=== PATIENT | female | born 1985 | race Caucasian/White ===

== ENCOUNTER 2018-08-14 13:35 | Emergency (ER) | payer OTHER, SELFPAY ==
[2018-08-14 13:51] VITALS: BP 116/76; PULSE 78; RESP 16; TEMP 36.6; O2SAT 98; BMI 35.5
--- NOTE | 2018-08-14 14:02 | PC.NURSE ---
Urine is clear yellow without obvious radha blood seen
[2018-08-14 14:17] LABS: Add Manual Diff / Slide Review NO; Basophils Absolute Auto 100 /uL (0-100); Basophils Percent Auto 1.2 % (0-2); Eosinophils Absolute Auto 100 /uL (0-450); Eosinophils Percent Auto 1.7 % (2-4); Hematocrit 38.9 % (36-46); Hemoglobin 13.4 g/dL (12.0-16.0); Lymphocytes Absolute Auto 2500 /uL (1100-4500); Lymphocytes Percent Auto 38.8 % (25-40); Mean Corpuscular HGB Conc 34.6 % (30-36); Mean Corpuscular Hemoglobin 30.6 PG (26-34); Mean Corpuscular Volume 88.4 fL (80-100); Monocytes Absolute Auto 500 /uL (0-900); Monocytes Percent Auto 7.4 % (3-14); Neutrophils Absolute Auto 3300 /uL (1500-7000); Neutrophils Percent Auto 50.9 % (50-75); Platelet Count 278 X10^3/uL (150-400); Red Blood Cell Count 4.39 X10^6/uL (4.0-5.2); Red Cell Distribution Width 13.5 % (11.6-14.8); White Blood Cell Count 6.6 X10^3/uL (4.5-11.0)
--- NOTE | 2018-08-14 14:19 | ED_ITS ---
HPI - Female Genitourinary General Chief complaint: Vaginal Bleeding Stated complaint: bleeding for 8 months, food stand manager problem Time Seen by Provider: 08/14/18 14:17 Source: patient Mode of arrival: ambulatory Limitations: no limitations History of Present Illness HPI Narrative: This is a 33-year-old female comes to the emergency with complaint of vaginal bleeding for about 8 months. Patient states that has been slowly worsening over the last week or so. She started noticing an increase in bleeding. She was going to about 4-5 tampons daily but lately she will occasionally having gush and go through a tampon very quickly. She denies any passing out, she has occasionally felt lightheaded, no chest pain, no shortness of breath, no abdominal pain. No nausea, no vomiting no other GI or urinary symptoms. Patient is not on any blood thinners. She had a Depo shot but that was about 6 months ago. It did not seem to make any difference in her bleeding. She did see her primary care, but they no longer her take her insurance so she has not been able to follow-up. Patient does take medication for anxiety/depr ession. Patient states that she had a child about 12 months ago, she had 1 normal. And then the 2nd 1 started and she never stopped bleeding. Related Data Home Medications Medication Instructions Recorded Confirmed buspirone 5 mg PO DAILY #0 tab 12/25/15 08/14/18 iron 1 tab PO DAILY 08/14/18 08/14/18 terbinafine HCl 1 tab PO DAILY 08/14/18 08/14/18 Previous Rx's Medication Instructions Recorded norgestimate-ethinyl estradiol 1 tab PO DAILY #84 tab 08/14/18 [Ortho Tri-Cyclen (28)] Allergies Allergy/AdvReac Type Severity Reaction Status Date / Time cephalexin Allergy Intermediate HIVES ALL Unverified 06/11/17 12:12 OVER BODY Review of Systems Review of Systems ROS Unobtainable: All systems reviewed & are unremarkable except as noted in HPI and below Constitutional Denies chills, Denies fever(s), Denies lethargy and Denies weakness Cardiovascular Denies chest pain, Denies syncope, Denies rapid heart rate, Denies edema, Reports lightheadedness, Denies palpitations, Denies dyspnea and Denies dyspnea on exertion Respiratory Denies dyspnea and Denies dyspnea on exertion Gastrointestinal Gastrointestinal: Denies abdominal pain, Denies change in bowel habits, Denies diarrhea, Denies nausea and Denies vomiting Genitourinary Reports as per HPI, Reports abnormal menses, Reports abnormal vaginal bleeding, Denies urinary frequency, Denies dysuria, Denies pelvic pain, Denies urinary hesitancy, Denies urinary urgency, Denies vaginal discharge and Denies vaginal odor Neurologic Denies syncope and Denies weakness Endocrine Denies palpitations [facility] Social History Smoking Status: Never smoker Social History Smoking Status: Never smoker Exam Narrative Exam Narrative: GENERAL: Alert and oriented x three, well-nourished, well- appearing female in no acute distress. HEENT: Head normocephalic, atraumatic, EOMI, pupils reactive, face symmetric, moist mucous membranes NECK: Supple, full range of motion CARDIOVASCULAR: Regular rate and rhythm without murmurs, rubs or gallops. RESPIRATORY: Breath sounds equal bilaterally, no wheezes rales or rhonchi. ABDOMEN: Soft, nontender. Normoactive bowel sounds all 4 quadrants. No guarding or rebound, rigidity, no mass : No CVA tenderness EXTREMITIES: Normal range of motion, no clubbing or edema. Neurovascularly intact NEUROLOGICAL: Cranial nerves II through XII grossly intact. Moving all extremities SKIN: Warm, dry, no petechiae, no rashes or lesions. Initial Vital Signs Initial Vital Signs: Vital Signs Temperature 97.8 F 08/14/18 13:51 Pulse Rate 78 08/14/18 13:51 Respiratory Rate 16 08/14/18 13:51 Blood Pressure 116/76 08/14/18 13:51 Pulse Oximetry 98 08/14/18 13:51 Course Orders Ordered: ED Orders 08/14/18 14:05 Basic Metabolic Panel Stat Complete Blood Count AUTO DIFF Stat 08/14/18 15:06 US pelvic complete Stat Vital Signs - 8 hr 08/14/18 13:51 Temperature 97.8 F Pulse Rate 78 Respiratory Rate 16 Blood Pressure 116/76 Pulse Oximetry 98 MDM - Female Genitourinary Lab Data Attestation: I reviewed the patient's lab results. Result diagrams: 08/14/18 14:05 08/14/18 14:05 Lab Results 06/14/19 06/14/19 Range/Units 14:05 14:05 WBC 6.6 (4.5-11.0) X10^3/uL RBC 4.39 (4.0-5.2) X10^6/uL Hgb 13.4 (12.0-16.0) g/dL Hct 38.9 (36-46) % MCV 88.4 (80-100) fL MCH 30.6 (26-34) PG MCHC 34.6 (30-36) % RDW 13.5 (11.6-14.8) % Plt Count 278 (150-400) X10^3/uL Neut % (Auto) 50.9 (50-75) % Lymph % (Auto) 38.8 (25-40) % Vermilion % (Auto) 7.4 (3-14) % Eos % (Auto) 1.7 L (2-4) % Baso % (Auto) 1.2 (0-2) % Neut # (Auto) 3300 (4547-5652) /uL Lymph # (Auto) 2500 (4629-0027) /uL Vermilion # (Auto) 500 (0-900) /uL Eos # (Auto) 100 (0-450) /uL Baso # (Auto) 100 (0-100) /uL Sodium 139 (137-145) mmol/L Potassium 4.3 (3.4-5.1) mmol/L Chloride 104 (98-107) mmol/L Carbon Dioxide 29 (22-32) mmol/L BUN 13 (7-17) mg/dL Creatinine 0.90 (0.52-1.04) mg/dL Estimated GFR > 60.0 (>60) mL/min BUN/Creatinine Ratio 14.4 (6-22) Glucose 89 (70-100) mg/dL Calcium 8.9 (8.4-10.2) mg/dL Point of Care Testing Test Results Negative Urine Dip Bedside Urine Glucose Negative Bedside Urine Bilirubin - Negative Bedside Urine Ketone - Negative Urine Specific Lenore 1.030 Bedside Urine Occult Blood - Negative Bedside Urine pH 6.0 Bedside Urine Protein - Negative Bedside Urine Urobilinogen - Negative Bedside Urine Nitrite - Negative Bedside Urine Leukocytes - Negative Esterase Imaging Data Pelvic US: My impression: right ovarian cyst, no other changes. Radiologist's impression: [address] [address] Ultrasound Report Signed Patient: Silvia Owens KMR#: [id number] : 1985Acct:[id number] Age/Sex: 33 / FDate of Service: 08/14/18 Loc: ED Accession Number: [id number] Procedure: US pelvic complete Ordering Provider: Luiza Rangel D.O. PROCEDURE: US PELVIC COMPLETE INDICATIONS: BLEEDING X 8 MONTHS TECHNIQUE: Real-time scanning was performed of the pelvic organs, with image documentation. Additional endovaginal scanning was necessary due to incomplete visualization of the adnexal and endometrial structures by transabdominal scanning. COMPARISON: [facility], , PELVIC COMPLETE, 10/26/2013, 11:11. [facility], , PELVIC COMPLETE, 10/17/2013, 17:35. FINDINGS: Transabdominal scanning: Limited scanning through the kidneys shows no hydronephrosis. No pathologic free abdominal or pelvic fluid. Endovaginal scanning: Uterus: Uterus is normal in size at 4.5 x 5.8 x 8.6 cm. The endometrium measures 6.7 mm in combined thickness. Ovaries: The right ovary measures 4.0 x 2.9 x 3.5 cm, mildly enlarged by a simple cyst that measures 3.6 x 2.6 x 3.2 cm. The left ovary measures 2.2 x 1.2 x 1.1 cm. No abnormal adjacent free pelvic fluid. IMPRESSION: There is a single simple appearing 3.6 cm maximal dimension right ovarian cyst without evidence of ovarian torsion. No ruptured ovarian cyst is suspected, the uterus appears normal. Dictated by: Arjun Lee M.D. on 08/14/2018 at 16:06 Approved by: Arjun Lee M.D. on 08/14/2018 at 16:08 [facility] Narrative Medical decision making narrative: Patient has a right ovarian cyst on her ultrasound but no other acute findings. Lab work is normal, point of care urine is negative, is negative. Discussed with patient some may be hormonal secondary to her that was almost a year ago but that we could try oral contraceptives. She states she is in the process of quitting smoking. She has not make actively smoking recently. Discussed we could start her on OCPs but she should not be smoking as it does increase her risk of blood clots and can kill her. Patient does have follow-up set up on the 17 of September with primary care. Was also given referral to OBGYN if she prefers. Given anticipatory guidance. Discharge Plan Departure Patient Disposition: Home Clinical Impression: DUB (dysfunctional uterine bleeding) Discharge Date/Time: 08/14/18 15:34 Interventions: ED Discharge Assessment Last Done: 08/14/18 15:34 Instructions: DI for Vaginal Bleeding Activity Restrictions/Additional Instructions: Follow-up with your new physician or the local senior producer office in the next several weeks. Continue home medications as prescribed. Your prescription was sent to [facility] in [place]. You may start control as this may help with your bleeding make sure that you have stopped smoking as it does increase your risk of blood clots which can cause You may continue iron as needed. Return to the emergency department for worsening symptoms, passing out, new chest pain, shortness of breath, no abdominal pain, black or bloody stools, persistent vomiting, rapidly worsening bleeding or other new or concerning symptoms. Prescriptions: New norgestimate-ethinyl estradiol [Ortho Tri-Cyclen (28)] 0.18/0.215/0.25 mg-35 mcg (28) tablet 1 tab PO DAILY Qty: 84 RF: 0 No Action buspirone 5 MG tablet 5 mg PO DAILY Qty: 0 RF: 0 iron 1 tab PO DAILY RF: 0 terbinafine HCl 1 tab PO DAILY RF: 0 Referrals: Anabel Haney MD [Physician] -
[2018-08-14 14:26] LABS: BUN Creatinine Ratio 14.4 (6-22); Blood Urea Nitrogen 13 mg/dL (7-17); Calcium 8.9 mg/dL (8.4-10.2); Carbon Dioxide 29 mmol/L (22-32); Chloride 104 mmol/L (98-107); Estimated Glomerular Filt Rate > 60.0 mL/min (>60); Glucose 89 mg/dL (70-100); HEMOLYSIS < 15 (0-50); Potassium 4.3 mmol/L (3.4-5.1); Sodium 139 mmol/L (137-145)
--- NOTE | 2018-08-14 15:06 | DI.US.S_ITS ---
PROCEDURE: US PELVIC COMPLETE INDICATIONS: BLEEDING X 8 MONTHS TECHNIQUE: Real-time scanning was performed of the pelvic organs, with image documentation. Additional endovaginal scanning was necessary due to incomplete visualization of the adnexal and endometrial structures by transabdominal scanning. COMPARISON: [facility], , PELVIC COMPLETE, 10/26/2013, 11:11. [facility], , PELVIC COMPLETE, 10/17/2013, 17:35. FINDINGS: Transabdominal scanning: Limited scanning through the kidneys shows no hydronephrosis. No pathologic free abdominal or pelvic fluid. Endovaginal scanning: Uterus: Uterus is normal in size at 4.5 x 5.8 x 8.6 cm. The endometrium measures 6.7 mm in combined thickness. Ovaries: The right ovary measures 4.0 x 2.9 x 3.5 cm, mildly enlarged by a simple cyst that measures 3.6 x 2.6 x 3.2 cm. The left ovary measures 2.2 x 1.2 x 1.1 cm. No abnormal adjacent free pelvic fluid. IMPRESSION: There is a single simple appearing 3.6 cm maximal dimension right ovarian cyst without evidence of ovarian torsion. No ruptured ovarian cyst is suspected, the uterus appears normal. Dictated by: Arjun Lee M.D. on 08/14/2018 at 16:06 Approved by: Arjun Lee M.D. on 08/14/2018 at 16:08
== END 2018-08-14 15:34 | disposition home or self-care (01) ==
PROVIDERS: Emergency Provider Emergency Medicine
DX: N93.9 Abnormal uterine and vaginal bleeding, unspecified (principal)
CPT/HCPCS: 36591; 76830; 76856; 80048; 81003; 81025; 85025; 99282; 99284

== ENCOUNTER → 2018-11-28 17:01 | Outpatient (CLI) | payer OTHER, SELFPAY ==
[2018-11-28 18:54] LABS: Urine N gonorrhoeae NOT DETECTED
[2018-11-28 20:57] LABS: Urine Chlamydia NOT DETECTED
== END ==
PROVIDERS: Visit Provider Physician Assistant
DX: N89.8 Other specified noninflammatory disorders of vagina (principal); Z11.3 Encounter for screening for infections with a predominantly sexual mode of transmission
CPT/HCPCS: 87210; 87491; 87591

== ENCOUNTER → 2019-11-09 16:12 | Outpatient (CLI) | payer OTHER, SELFPAY ==
[2019-11-09 17:11] LABS: Add Manual Diff / Slide Review NO; Basophils Absolute Auto 0 /uL (0-100); Basophils Percent Auto 0.6 % (0-2); Eosinophils Absolute Auto 100 /uL (0-450); Eosinophils Percent Auto 1.2 % (2-4); Hematocrit 40.1 % (36-46); Hemoglobin 13.6 g/dL (12.0-16.0); Lymphocytes Absolute Auto 1900 /uL (1100-4500); Lymphocytes Percent Auto 33.5 % (25-40); Mean Corpuscular HGB Conc 33.8 % (30-36); Mean Corpuscular Hemoglobin 30.4 PG (26-34); Mean Corpuscular Volume 89.8 fL (80-100); Monocytes Absolute Auto 500 /uL (0-900); Monocytes Percent Auto 8.8 % (3-14); Neutrophils Absolute Auto 3200 /uL (1500-7000); Neutrophils Percent Auto 55.9 % (50-75); Platelet Count 279 X10^3/uL (150-400); Red Blood Cell Count 4.46 X10^6/uL (4.0-5.2); Red Cell Distribution Width 12.8 % (11.6-14.8); White Blood Cell Count 5.7 X10^3/uL (4.5-11.0)
[2019-11-09 18:04] LABS: Alanine Aminotransferase 13 IU/L (<35); Albumin Globulin Ratio 1.6 (1.0-2.8); Alkaline Phosphatase 57 U/L (38-126); Aspartate Aminotransferase 18 IU/L (14-36); BUN Creatinine Ratio 14.6 (6-22); Bilirubin Total 0.3 mg/dL (0.2-1.3); Blood Urea Nitrogen 14 mg/dL (7-17); Calcium 9.3 mg/dL (8.4-10.2); Carbon Dioxide 28 mmol/L (22-32); Chloride 106 mmol/L (98-107); Estimated Glomerular Filt Rate > 60.0 mL/min (>60); Globulin 2.5 g/dL (1.7-4.1); Glucose 94 mg/dL (70-100); HEMOLYSIS < 15 (0-50); Potassium 4.4 mmol/L (3.4-5.1); Sodium 138 mmol/L (137-145); Total Protein 6.5 g/dL (6.3-8.2)
[2019-11-09 18:21] LABS: HCG Quantitative /Beta subunit < 2.4 mIU/mL
[2019-11-09 18:36] LABS: TSH w/ Reflex to FT4 0.93 uIU/mL (0.47-4.68)
== END ==
PROVIDERS: Referring Provider Nurse Practitioner; Visit Provider Nurse Practitioner
DX: N92.0 Excessive and frequent menstruation with regular cycle (principal)
CPT/HCPCS: 36415; 80053; 84443; 84702; 85025

== ENCOUNTER → 2020-01-12 16:35 | Outpatient (CLI) | payer OTHER, SELFPAY ==
[2020-01-12 17:53] LABS: Free T4, Direct Thyroxine 0.98 ng/dL (0.78-2.19)
== END ==
PROVIDERS: Referring Provider Obstetrics & Gynecology; Visit Provider Obstetrics & Gynecology
DX: R23.2 Flushing (principal)
CPT/HCPCS: 36415; 84439; 84481

== ENCOUNTER → 2020-04-21 10:53 | Outpatient (CLI) | payer OTHER, SELFPAY ==
[2020-04-21 15:07] LABS: COVID19 -Nasal RAPID Negative (Negative)
== END ==
PROVIDERS: PCP Nurse Practitioner Family; Visit Provider Nurse Practitioner Family
DX: Z20.822 Contact with and (suspected) exposure to COVID-19 (principal); G47.33 Obstructive sleep apnea (adult) (pediatric)
CPT/HCPCS: 87635; 95810

== ENCOUNTER 2020-12-09 05:55 | Emergency (ER) | payer OTHER, SELFPAY ==
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
[2020-12-09 05:56] VITALS: BP 131/75; PULSE 71; RESP 18; TEMP 36.7; O2SAT 98; BMI 28.2
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
[2020-12-09] MEDS: KETOROLAC 30 MG/ML VIAL IV (07:47)
[2020-12-09] MEDS: TET,DIPH,PERTUSS(ACELL),VAC/PF 0.5 ML SYRINGE IM (07:47)
[2020-12-09 08:06] VITALS: BP 124/73; PULSE 62; RESP 18; O2SAT 100
[2020-12-09 08:51] LABS: UR Morphine/Opiate cutoff 300 Negative (Negative); Ur Creatinine Normal (Normal); Ur Specific Gravity Normal (Normal); Urine Amphetamines Negative (Negative); Urine Barbiturates Negative (Negative); Urine Benzodiazepines Negative (Negative); Urine Cocaine Negative (Negative); Urine MDMA Negative (Negative); Urine Methadone Negative (Negative); Urine Methamphetamines Negative (Negative); Urine Oxycodone Negative (Negative); Urine Phencyclidine Negative (Negative); Urine Tetrahydrocannabinol Negative (Negative); Urine Tricyclic Antidepressant Negative (Negative); Urine pH Normal (Normal)
[2020-12-09 10:22] LABS: Ethanol (ETOH) < 10 mg/dL
== END 2020-12-09 08:48 | disposition home or self-care (01) ==
PROVIDERS: Emergency Provider Emergency Medicine; PCP Nurse Practitioner Family
DX: S90.32XA Contusion of left foot, initial encounter (principal); S90.812A Abrasion, left foot, initial encounter; W23.0XXA Caught, crushed, jammed, or pinched between moving objects, initial encounter; Z23 Encounter for immunization
CPT/HCPCS: 73610; 73630; 80305; 80320; 90471; 96374; 99284; 90715; J1885

== ENCOUNTER → 2020-12-21 13:37 | Outpatient (CLI) | payer OTHER, SELFPAY ==
--- NOTE | 2020-12-21 | DI.CT.S_ITS ---
PROCEDURE: CT LE LT W CON INDICATIONS: CRUSHING INJURY OF LEFT FOOT TECHNIQUE: Noncontrast 1-1.5 mm axial sections acquired from above the tibiotalar joint to the bottom of the calcaneus, with coronal and sagittal reformats. COMPARISON: [facility] [place], CR, XR FOOT 3+ VIEWS LEFT, 12/20/2020, 12:27. FINDINGS: Image quality: Excellent. Bones: No acute fracture or dislocation. A small plantar calcaneal enthesophyte is present. No significant degenerative changes identified. Soft tissues: Mild soft tissue edema is noted around the ankle. The intrinsic foot musculature and lower leg musculature is normal in bulk. The articular cartilages, ligaments, and tendons are not well evaluated with CT IMPRESSION: No acute osseous abnormality identified in the foot. Dictated by: Nagi King M.D. on 12/21/2020 at 14:34 Approved by: Nagi King M.D. on 12/21/2020 at 14:45
== END ==
PROVIDERS: PCP Nurse Practitioner Family; Referring Provider Physician Assistant Medical; Visit Provider Physician Assistant Medical
DX: S97.82XA Crushing injury of left foot, initial encounter (principal); X58.XXXA Exposure to other specified factors, initial encounter
CPT/HCPCS: 73700

== ENCOUNTER 2021-07-14 15:38 | Emergency (ER) | payer OTHER, MEDICAID, SELFPAY ==
[2021-07-14] VITALS (17 sets, daily range): BP systolic 101–123; BP diastolic 57–79; PULSE 50–75; RESP 18; O2SAT 94–99; BMI 29.0
[2021-07-14 16:11] LABS: COVID19 -Nasal RAPID Negative (Negative)
[2021-07-14 16:19] LABS: Ictotest Urine Negative (Negative)
--- NOTE | 2021-07-14 16:28 | ED_ITS ---
HPI - General Adult General Chief complaint: Dizziness Stated complaint: Veritgo/Dizzy/Nausea Time Seen by Provider: 07/14/21 16:20 Source: patient Mode of arrival: Ambulatory History of Present Illness HPI narrative: Patient is a 36-year-old female here for evaluation of multiple symptoms to include nausea and dizziness and headache and which she describes as vertigo. The symptoms been going on for the past couple days. Seems to be worse when she stands. Also has sinus congestion. Also has photophobia. No sore throat. No cough. No numbness and tingling upper lower extremities. It seems to be somewhat difficult for the patient to complete the describes her symptoms. Related Data Previous Rx's Medication Instructions Recorded norgestimate 0.25 mg-ethinyl 1 tab PO DAILY #28 tab 01/13/20 estradiol 35 mcg tablet ([place]) metronidazole 500 mg tablet See Rx Instructions .ROUTE 01/31/20 .COMPLEX #10 tab bupropion HCl 300 mg 24 hr tablet, 300 mg PO QAM #90 tab 06/26/20 extended release methylphenidate HCl 18 mg 18 mg PO DAILY #30 tab 11/27/20 tablet,extended release 24 hr tramadol 50 mg tablet (Ultram) 50 mg PO Q6H PRN #10 tab 12/09/20 Allergies Allergy/AdvReac Type Severity Reaction Status Date / Time cephalexin Allergy Intermediate HIVES ALL Verified 06/26/20 10:39 OVER BODY Review of Systems Constitutional Constitutional: Reports as per HPI and Reports system reviewed and no additional complaints, except as documented ENT Ears, Nose, Mouth, and Throat: Reports system reviewed and no additional complaints, except as documented and Reports as per HPI Respiratory Respiratory: Reports as per HPI and Reports system reviewed and no additional complaints, except as documented Integumentary/Breasts Skin/Breast: Reports system reviewed and no additional complaints, except as documented and Reports as per HPI Neurologic Neurologic: Reports system reviewed and no additional complaints, except as documented Hematologic/Lymphatic Hematologic/Lymphatic: Reports system reviewed and no additional complaints, except as documented Allergic/Immunologic Allergic/Immunologic: Reports system reviewed and no additional complaints, except as documented Patient History Medical History ADHD, predominantly inattentive type Depression (~2003) Generalized anxiety disorder with panic attacks (~1999) Obstructive sleep apnea, adult Family History Father Hypertension Mental health problem Loud snoring Insomnia Depression Brother Diabetes mellitus Mental health problem Stroke Obesity Bipolar disorder Family/Other Depression Mother Obesity Depression Anxiety Social History Smoking Status: Former smoker Smoking Status: Former smoker alcohol intake frequency: a few times a month Substance Use Type: does not use Exam Initial Vital Signs Initial Vital Signs: Vital Signs Pulse Rate 75 07/14/21 15:41 Respiratory Rate 18 07/14/21 15:41 Blood Pressure 123/79 07/14/21 15:41 Pulse Oximetry 99 07/14/21 15:41 Const General: cooperative, comfortable and well developed HENMT Head: normal to inspection and normocephalic Ears: TM's normal bilaterally Mouth: oral mucosae normal Resp Effort & Inspection: normal respiratory effort Auscultation: clear to auscultation bilaterally Cardio Rate: regular rate Rhythm: regular rhythm GI Inspection: normal to inspection Neuro General: patient alert, patient awake, patient oriented x3 and moves all extremities Cranial Nerves: CN's II-XI intact bilaterally Speech: speech normal Gait: normal gait Sensory Exam: no sensory deficits noted Extrem General: normal to inspection and capillary refill normal Psych Appearance: grossly normal and well kempt Course Orders Ordered: ED Orders 07/14/21 15:42 COVID19 -Nasal RAPID/Pre-Proc Stat 07/14/21 16:14 Ictotest Urine Stat Discontinued Medications Diphenhydramine HCl (Diphenhydramine 50 Mg/Ml Vial) 25 mg IV NOW ONE Stop: 07/14/21 19:01 Last Admin: 07/14/21 19:13 Dose: 25 mg Documented by: SHELLIE Sodium Chloride (Normal Saline 0.9%) 1,000 mls @ 1,000 mls/hr IV BOLUS ONE Stop: 07/14/21 17:27 Last Infusion: 07/14/21 19:18 Dose: 0 mls/hr Documented by: Admin: 07/14/21 16:42 Dose: 1,000 mls/hr Documented by: SHELLIE Meclizine HCl (Meclizine Hcl 12.5 Mg Tablet) 25 mg PO NOW ONE Stop: 07/14/21 16:29 Last Admin: 07/14/21 16:33 Dose: 25 mg Documented by: SHELLIE Metoclopramide HCl (Metoclopramide 10 Mg/2 Ml Inj) 10 mg IV NOW ONE Stop: 07/14/21 19:01 Last Admin: 07/14/21 19:13 Dose: 10 mg Documented by: SHELLIE Ondansetron HCl (Ondansetron 4 Mg/2 Ml Inj) 4 mg IV NOW ONE Stop: 07/14/21 16:29 Last Admin: 07/14/21 16:41 Dose: 4 mg Documented by: SHELLIE Vital Signs Vital signs: Vital Signs - 8 hr 07/14/21 15:41 07/14/21 16:54 07/14/21 17:00 Pulse Rate 75 50 L 50 L Respiratory Rate 18 Blood Pressure 123/79 Pulse Oximetry 99 97 96 07/14/21 17:30 Pulse Rate 54 L Respiratory Rate Blood Pressure Pulse Oximetry 97 Medical Decision Making Lab Data Labs: Lab Results 07/14/21 07/14/21 Range/Units 15:42 16:14 Ur Bilirubin Confirm Negative (Negative) SARS-CoV-2 (PCR) Negative (Negative) Point of Care Testing Test Results Negative Urine Dip Bedside Urine Glucose Negative Bedside Urine Bilirubin + 1 Bedside Urine Ketone - Negative Urine Specific [place] 1.025 Bedside Urine Occult Blood - Negative Bedside Urine pH 6.0 Bedside Urine Protein - Negative Bedside Urine Urobilinogen - Negative Bedside Urine Nitrite - Negative Bedside Urine Leukocytes - Negative Esterase Point of care testing: Point of Care Testing Test Results Negative Urine Dip Bedside Urine Glucose Negative Bedside Urine Bilirubin + 1 Bedside Urine Ketone - Negative Urine Specific [place] 1.025 Bedside Urine Occult Blood - Negative Bedside Urine pH 6.0 Bedside Urine Protein - Negative Bedside Urine Urobilinogen - Negative Bedside Urine Nitrite - Negative Bedside Urine Leukocytes - Negative Esterase MDM Narrative Medical decision making narrative: Patient has a nonfocal neurologic exam. Physical exam is not consistent with meningitis. Dizziness somewhat improved with meclizine and fluids. Afebrile. Still continues to have a headache. Is given Benadryl and Reglan. Care turned over to Dr. Grossman to follow-up and disposition. Discharge Plan Departure Prescriptions: No Action bupropion HCl 300 mg tablet extended release 24 hr 300 mg PO QAM Qty: 90 3RF norgestimate-ethinyl estradiol [[place]] 0.25-35 mg-mcg tablet 1 tab PO DAILY Qty: 28 11RF metronidazole 500 mg tablet See Rx Instructions .ROUTE .COMPLEX Qty: 10 0RF Dose Instruction: take 1 tablet by mouth twice a day Rx Instructions: take 1 tablet by mouth twice a day methylphenidate HCl 18 mg tablet extended release 24hr 18 mg PO DAILY Qty: 30 0RF tramadol [Ultram] 50 mg tablet 50 mg PO Q6H PRN (Reason: pain) Qty: 10 0RF Referrals: Yoselin Jenkins ARNP [Primary Care Provider] -
[2021-07-14] MEDS: MECLIZINE HCL 12.5 MG TABLET 25 MG PO (16:33)
[2021-07-14] MEDS: ONDANSETRON 4 MG/2 ML INJ IV (16:41)
[2021-07-14] MEDS: SODIUM CHLORIDE 0.9% 1,000 ML 1000 ML IV (16:42)
[2021-07-14] MEDS: diphenhydrAMINE 50 MG/ML VIAL 25 MG IV (19:13)
[2021-07-14] MEDS: METOCLOPRAMIDE 10 MG/2 ML INJ IV (19:13)
[2021-07-14] MEDS: KETOROLAC 30 MG/ML VIAL 15 MG IV (21:55)
== END 2021-07-14 23:15 | disposition home or self-care (01) ==
PROVIDERS: Emergency Medicine; Emergency Provider Emergency Medicine; PCP Nurse Practitioner Family
DX: R42 Dizziness and giddiness (principal); R51.9 Headache, unspecified; R11.0 Nausea; H53.149 Visual discomfort, unspecified; Z20.822 Contact with and (suspected) exposure to COVID-19
CPT/HCPCS: 81003; 81025; 87635; 96374; 96375; 99284; C9803; J1200; J1885; J2405; J2765

== ENCOUNTER 2022-05-27 17:14 | Emergency (ER) | payer OTHER, MEDICAID, SELFPAY ==
[2022-05-27 17:38] VITALS: BP 134/68; PULSE 65; RESP 18; TEMP 37.8; O2SAT 97; BMI 29.0
[2022-05-27 18:19] LABS: COVID19 -Nasal RAPID Negative (Negative)
[2022-05-27 19:12] LABS: Add Manual Diff / Slide Review NO; Basophils Absolute Auto 0 /uL (0-100); Basophils Percent Auto 0.8 % (0-2); Eosinophils Absolute Auto 0 /uL (0-450); Eosinophils Percent Auto 0.3 % (2-4); Hematocrit 34.5 % (36-46); Hemoglobin 11.7 g/dL (12.0-16.0); Lymphocytes Absolute Auto 600 /uL (1100-4500); Lymphocytes Percent Auto 12.6 % (25-40); Mean Corpuscular HGB Conc 33.9 % (30-36); Mean Corpuscular Hemoglobin 28.6 PG (26-34); Mean Corpuscular Volume 84.4 fL (80-100); Monocytes Absolute Auto 500 /uL (0-900); Monocytes Percent Auto 11.5 % (3-14); Neutrophils Absolute Auto 3500 /uL (1500-7000); Neutrophils Percent Auto 74.8 % (50-75); Platelet Count 232 X10^3/uL (150-400); Red Blood Cell Count 4.09 X10^6/uL (4.0-5.2); Red Cell Distribution Width 14.5 % (11.6-14.8); White Blood Cell Count 4.6 X10^3/uL (4.5-11.0)
[2022-05-27 19:19] LABS: Alanine Aminotransferase 15 IU/L (<35); Albumin 4.1 g/dL (3.5-5.0); Albumin Globulin Ratio 1.5 (1.0-2.8); Alkaline Phosphatase 74 U/L (38-126); Aspartate Aminotransferase 20 IU/L (14-36); BUN Creatinine Ratio 11.5 (6-22); Bilirubin Total 0.4 mg/dL (0.2-1.3); Blood Urea Nitrogen 10 mg/dL (7-17); Calcium 8.5 mg/dL (8.4-10.2); Carbon Dioxide 24 mmol/L (22-32); Chloride 104 mmol/L (98-107); Estimated Glomerular Filt Rate > 60 mL/min (>60); Globulin 2.8 g/dL (1.7-4.1); Glucose 96 mg/dL (70-100); HEMOLYSIS < 15 (0-50); Lipase 55 U/L (23-300); Potassium 3.6 mmol/L (3.4-5.1); Sodium 135 mmol/L (137-145); Total Protein 6.9 g/dL (6.3-8.2)
--- NOTE | 2022-05-27 19:58 | DI.US.S_ITS ---
PROCEDURE: US ABDOMEN LIMITED INDICATIONS: PAIN TECHNIQUE: Real-time focused scanning was performed of the abdomen, with image documentation. COMPARISON: None. FINDINGS: The liver demonstrates a small oval hyperechoic lesion within the right hepatic lobe measuring up to 0.6 x 0.5 x 0.5 cm. The gallbladder demonstrates no stones, wall thickening, or pericholecystic fluid. No intra or extrahepatic biliary ductal dilatation. Visualized pancreas appears unremarkable sonographically. A small right renal cyst is incidentally noted measuring up to 0.2 cm. IMPRESSION: 1. No evidence of cholelithiasis or cholecystitis. 2. Small hyperechoic liver lesion may represent a hemangioma but is nonspecific. If clinically indicated, further evaluation may be obtained with a liver protocol MRI versus follow-up ultrasound to demonstrate stability in 6 months. Dictated by: Yovani Stone M.D. on 05/27/2022 at 21:45 Approved by: Yovani Stone M.D. on 05/27/2022 at 21:48
--- NOTE | 2022-05-27 19:58 | ED_ITS ---
HPI - General Adult General Chief complaint: Fever Stated complaint: Rt. side qaud pain/chills Time Seen by Provider: 05/27/22 19:55 Source: patient and family Mode of arrival: Ambulatory History of Present Illness HPI narrative: Patient is a 36-year-old female who is here for evaluation of right-sided abdominal pain. She also states she is having chills. Pain is not worse with movement or eating. No vomiting. No change in bowel habits. Does hurt to touch. Urinary symptoms. Kids at home have upper respiratory tract infection symptoms. She is not tried anything for the symptoms prior to arrival. Related Data Previous Rx's Medication Instructions Recorded norgestimate 0.25 mg-ethinyl 1 tab PO DAILY #28 tabs 01/13/20 estradiol 35 mcg tablet ([place]) metronidazole 500 mg tablet See Rx Instructions .Route 01/31/20 .COMPLEX #10 tabs tramadol 50 mg tablet (Ultram) 50 mg PO Q6H PRN pain #10 tabs 12/09/20 ketorolac 10 mg tablet 10 mg PO Q6H PRN pain #14 tabs 07/14/21 meclizine 25 mg tablet 25 mg PO BID-TID PRN dizziness #14 07/14/21 tabs ondansetron 4 mg disintegrating 4 mg PO TID-QID PRN nausea and 07/14/21 tablet vomiting #10 tabs bupropion HCl 300 mg 24 hr tablet, 300 mg PO QAM #90 tabs 10/25/21 extended release lithium carbonate 300 mg capsule 300 mg PO BEDTIME #30 caps 10/25/21 Allergies Allergy/AdvReac Type Severity Reaction Status Date / Time cephalexin Allergy Intermediate HIVES ALL Verified 05/27/22 17:41 OVER BODY Review of Systems Constitutional Constitutional: Reports system reviewed and no additional complaints, except as documented Gastrointestinal Gastrointestinal: Reports system reviewed and no additional complaints, except as documented Genitourinary Genitourinary: Reports system reviewed and no additional complaints, except as documented Integumentary/Breasts Skin/Breast: Reports system reviewed and no additional complaints, except as documented Patient History Medical History ADHD, predominantly inattentive type Depression (~2003) Generalized anxiety disorder with panic attacks (~1999) Obstructive sleep apnea, adult Family History Father Hypertension Mental health problem Loud snoring Insomnia Depression Brother Diabetes mellitus Mental health problem Stroke Obesity Bipolar disorder Family/Other Depression Mother Obesity Depression Anxiety Social History Smoking Status: Current every day smoker Smoking Status: Current every day smoker tobacco type: vaping alcohol intake frequency: a few times a month Substance Use Type: does not use Exam Initial Vital Signs Initial Vital Signs: Vital Signs Temperature 100.1 F H 05/27/22 17:38 Pulse Rate 65 05/27/22 17:38 Respiratory Rate 18 05/27/22 17:38 Blood Pressure 134/68 05/27/22 17:38 Pulse Oximetry 97 05/27/22 17:38 Oxygen Delivery Method Room Air 05/27/22 17:38 Resp Effort & Inspection: normal respiratory effort Auscultation: clear to auscultation bilaterally Cardio Rate: regular rate GI Inspection: normal to inspection Palpation: soft, No firm, No guarding and tender (Right upper quadrant) Skin General: no rashes or lesions noted Neuro General: patient alert, patient awake and moves all extremities Extrem General: normal to inspection and capillary refill normal Course Orders Ordered: ED Orders 05/27/22 19:00 Complete Blood Count AUTO DIFF Stat Comprehensive Metabolic Panel Stat Lipase Stat Urine Culture Stat Urine Microscopic Stat 05/27/22 19:58 US abdomen limited Stat Discontinued Medications Acetaminophen (Acetaminophen 325 Mg Tablet) 650 mg PO NOW ONE Stop: 05/27/22 19:33 Last Admin: 05/27/22 22:24 Dose: 650 mg Documented By: SB Ondansetron HCl (Ondansetron 4 Mg Odt) 4 mg PO NOW PRN PRN Reason: Nausea And Vomiting Ondansetron HCl (Ondansetron 4 Mg/2 Ml Inj) 4 mg IV NOW PRN PRN Reason: Nausea And Vomiting Vital Signs Vital signs: Vital Signs - 8 hr 05/27/22 22:16 05/27/22 22:24 Temperature 101.4 F H 101.4 F H Pulse Rate 61 Respiratory Rate 16 Blood Pressure [Right Arm] 122/67 Pulse Oximetry 100 Oxygen Delivery Method Room Air Medical Decision Making Medical Records Medical records reviewed: Yes I reviewed the patient's medical records. Lab Data Lab results reviewed: Yes I reviewed the patient's lab results. 05/27/22 19:00 05/27/22 19:00 Labs: Lab Results 05/27/22 05/27/22 05/27/22 Range/Units 17:46 19:00 19:00 WBC 4.6 (4.5-11.0) X10^3/uL RBC 4.09 (4.0-5.2) X10^6/uL Hgb 11.7 L (12.0-16.0) g/dL Hct 34.5 L (36-46) % MCV 84.4 (80-100) fL MCH 28.6 (26-34) PG MCHC 33.9 (30-36) % RDW 14.5 (11.6-14.8) % Plt Count 232 (150-400) X10^3/uL Neut % (Auto) 74.8 (50-75) % Lymph % (Auto) 12.6 L (25-40) % [place] % (Auto) 11.5 (3-14) % Eos % (Auto) 0.3 L (2-4) % Baso % (Auto) 0.8 (0-2) % Neut # (Auto) 3500 (3335-7094) /uL Lymph # (Auto) 600 L (6988-4512) /uL [place] # (Auto) 500 (0-900) /uL Eos # (Auto) 0 (0-450) /uL Baso # (Auto) 0 (0-100) /uL Sodium 135 L (137-145) mmol/L Potassium 3.6 (3.4-5.1) mmol/L Chloride 104 (98-107) mmol/L Carbon Dioxide 24 (22-32) mmol/L BUN 10 (7-17) mg/dL Creatinine 0.87 (0.52-1.04) mg/dL Estimated GFR > 60 (>60) mL/min BUN/Creatinine Ratio 11.5 (6-22) Glucose 96 (70-100) mg/dL Calcium 8.5 (8.4-10.2) mg/dL Total Bilirubin 0.4 (0.2-1.3) mg/dL AST 20 (14-36) IU/L ALT 15 (<35) IU/L Alkaline Phosphatase 74 (38-126) U/L Total Protein 6.9 (6.3-8.2) g/dL Albumin 4.1 (3.5-5.0) g/dL Globulin 2.8 (1.7-4.1) g/dL Albumin/Globulin Ratio 1.5 (1.0-2.8) Lipase 55 (23-300) U/L Urine RBC (0-5/HPF) Urine WBC (0-5/HPF) Ur Squamous Epith Cells (0-5/HPF) Ur Transition Epith Cell (0-5/HPF) Urine Bacteria (None) Ur Culture Indicated? SARS-CoV-2 (PCR) Negative (Negative) 05/27/22 Range/Units 19:00 WBC (4.5-11.0) X10^3/uL RBC (4.0-5.2) X10^6/uL Hgb (12.0-16.0) g/dL Hct (36-46) % MCV (80-100) fL MCH (26-34) PG MCHC (30-36) % RDW (11.6-14.8) % Plt Count (150-400) X10^3/uL Neut % (Auto) (50-75) % Lymph % (Auto) (25-40) % [place] % (Auto) (3-14) % Eos % (Auto) (2-4) % Baso % (Auto) (0-2) % Neut # (Auto) (5616-7011) /uL Lymph # (Auto) (6023-3458) /uL [place] # (Auto) (0-900) /uL Eos # (Auto) (0-450) /uL Baso # (Auto) (0-100) /uL Sodium (137-145) mmol/L Potassium (3.4-5.1) mmol/L Chloride (98-107) mmol/L Carbon Dioxide (22-32) mmol/L BUN (7-17) mg/dL Creatinine (0.52-1.04) mg/dL Estimated GFR (>60) mL/min BUN/Creatinine Ratio (6-22) Glucose (70-100) mg/dL Calcium (8.4-10.2) mg/dL Total Bilirubin (0.2-1.3) mg/dL AST (14-36) IU/L ALT (<35) IU/L Alkaline Phosphatase (38-126) U/L Total Protein (6.3-8.2) g/dL Albumin (3.5-5.0) g/dL Globulin (1.7-4.1) g/dL Albumin/Globulin Ratio (1.0-2.8) Lipase (23-300) U/L Urine RBC 0-1/hpf (0-5/HPF) Urine WBC 5-10/hpf H (0-5/HPF) Ur Squamous Epith Cells 5-10 /hpf H (0-5/HPF) Ur Transition Epith Cell 1-5/hpf (0-5/HPF) Urine Bacteria Many (>30) H (None) Ur Culture Indicated? Specimen cultured SARS-CoV-2 (PCR) (Negative) Point of Care Testing Test Results Negative Urine Dip Bedside Urine Glucose Negative Bedside Urine Bilirubin ++ 2 Bedside Urine Ketone +/- 5 Urine Specific [place] 1.015 Bedside Urine Occult Blood +++ Bedside Urine pH 6.0 Bedside Urine Protein - Negative Bedside Urine Urobilinogen - Negative Bedside Urine Nitrite - Negative Bedside Urine Leukocytes - Negative Esterase Point of care testing: Point of Care Testing Test Results Negative Urine Dip Bedside Urine Glucose Negative Bedside Urine Bilirubin ++ 2 Bedside Urine Ketone +/- 5 Urine Specific [place] 1.015 Bedside Urine Occult Blood +++ Bedside Urine pH 6.0 Bedside Urine Protein - Negative Bedside Urine Urobilinogen - Negative Bedside Urine Nitrite - Negative Bedside Urine Leukocytes - Negative Esterase Imaging Data US - abdomen: Radiologist's Impression: PROCEDURE: US ABDOMEN LIMITED ? INDICATIONS:? PAIN ? TECHNIQUE:? Real-time focused scanning was performed of the abdomen, with image documentation.? ? COMPARISON:? None. ? FINDINGS:? ? The liver demonstrates a small oval hyperechoic lesion within the right hepatic lobe measuring up to 0.6 x 0.5 x 0.5 cm. ? The gallbladder demonstrates no stones, wall thickening, or pericholecystic fluid. ? No intra or extrahepatic biliary ductal dilatation. ? Visualized pancreas appears unremarkable sonographically. ? A small right renal cyst is incidentally noted measuring up to 0.2 cm. ? ? IMPRESSION:? ? 1. No evidence of cholelithiasis or cholecystitis. ? 2. Small hyperechoic liver lesion may represent a hemangioma but is nonspecific.? If clinically indicated, further evaluation may be obtained with a liver protocol MRI versus follow-up ultrasound to demonstrate stability in 6 months. MDM Narrative Medical decision making narrative: Labs are unremarkable. She does have right upper quadrant pain however the right upper quadrant ultrasound is unremarkable. She does have what appears to be a hemangioma in the liver and she was informed of this and was told that she needed to follow-up with her primary doctor. Urinalysis does show blood however her physical exam is not consistent with a stone. I did discuss with her options to include waiting to see whether not her symptoms change or improve over the next 24-48 hours versus obtaining a CT scan today. The patient opted to hold on any further workup for now. Will discharge patient home with return precautions. She expressed understanding and agreement. Discharge Plan Departure Patient Disposition: Home Clinical Impression: Abdominal pain Instructions: DI for Abdominal Pain-Adult Activity Restrictions/Additional Instructions: Continue to take all of your medications as directed. Return to the emergency department for any new or worsening symptoms. Like we discussed there was an incidental finding of what appears to be something called a hemangioma in your liver. This does require follow-up in 6-12 months by your primary doctor. Prescriptions: No Action bupropion HCl 300 mg tablet extended release 24 hr 300 mg PO QAM Qty: 90 3RF lithium carbonate 300 mg capsule 300 mg PO BEDTIME Qty: 30 3RF norgestimate-ethinyl estradiol [[place]] 0.25-35 mg-mcg tablet 1 tab PO DAILY Qty: 28 11RF metronidazole 500 mg tablet See Rx Instructions .ROUTE .COMPLEX Qty: 10 0RF Dose Instruction: take 1 tablet by mouth twice a day Rx Instructions: take 1 tablet by mouth twice a day meclizine 25 mg tablet 25 mg PO BID-TID PRN (Reason: dizziness) Qty: 14 0RF ketorolac 10 mg tablet 10 mg PO Q6H PRN (Reason: pain) Qty: 14 0RF ondansetron 4 mg tablet,disintegrating 4 mg PO TID-QID PRN (Reason: nausea and vomiting) Qty: 10 0RF tramadol [Ultram] 50 mg tablet 50 mg PO Q6H PRN (Reason: pain) Qty: 10 0RF Referrals: Yoselin Jenkins ARNP [Primary Care Provider] - Stand Alone Forms: Patient Portal/API
[2022-05-27 20:49] LABS: Bacteria Urine Many (>30); RBC Urine 0-1/HPF (0-5/HPF); Squamous Epithelial Cell Urine 5-10 /HPF (0-5/HPF); Transitional Epi Cells Urine 1-5/HPF (0-5/HPF); WBC Urine 5-10/HPF (0-5/HPF)
[2022-05-27 20:50] LABS: Culture Indicated Urine Specimen Cultured
[2022-05-27 22:16] VITALS: BP 122/67; PULSE 61; RESP 16; TEMP 38.6; O2SAT 100
[2022-05-27 22:24] VITALS: TEMP 38.6
[2022-05-27] MEDS: ACETAMINOPHEN 325 MG TABLET 650 MG PO (22:24)
== END 2022-05-27 22:22 | disposition home or self-care (01) ==
PROVIDERS: Emergency Medicine; Emergency Provider Emergency Medicine; PCP Nurse Practitioner Family
DX: R10.11 Right upper quadrant pain (principal); Z20.822 Contact with and (suspected) exposure to COVID-19
CPT/HCPCS: 36415; 76705; 80053; 81003; 81015; 81025; 83690; 85025; 87077; 87086; 87186; 87635; 99284; C9803

== ENCOUNTER 2023-05-09 19:12 | Emergency (ER) | payer OTHER, MEDICAID, SELFPAY ==
[2023-05-09 19:19] VITALS: BP 134/94; PULSE 97; RESP 18; TEMP 36.7; O2SAT 100; BMI 27.4
--- NOTE | 2023-05-09 19:47 | PC.NURSE ---
Assisted pt into green scrubs. Pt was offered bathroom and water. Pt is now in bed on phone
--- NOTE | 2023-05-09 20:05 | ED.PSYCH ---
HPI - Psych <Luiza Gomez MD - Last Filed: 05/11/23 03:09> General Chief Complaint: Psychiatric Symptoms Stated Complaint: psych eval Time Seen by Provider: 05/09/23 19:32 Source: patient Mode of arrival: Ambulatory History of Present Illness HPI Narrative: 37-year-old female with history of anxiety and depression presents for evaluation worsening depression with suicidal ideation and plan. Patient states that 4 days ago she had a plan to kill herself by slitting her wrist, but when she went to put the knife to her wrist it hurt too badly and she stopped her efforts. She began to formulate a different plan to kill herself in a way that would not be traumatizing to her kids, but today she decided that she did not want to kill herself and decided to present for evaluation. She states she was open to either inpatient or outpatient therapy depending on what is best for her. Denies drug or alcohol use. Related Data Previous Rx's Medication Instructions Recorded norgestimate 0.25 mg-ethinyl 1 tab PO DAILY #28 tabs 01/13/20 estradiol 35 mcg tablet ([place]) metronidazole 500 mg tablet See Rx Instructions .Route 01/31/20 .COMPLEX #10 tabs tramadol 50 mg tablet (Ultram) 50 mg PO Q6H PRN pain #10 tabs 12/09/20 ketorolac 10 mg tablet 10 mg PO Q6H PRN pain #14 tabs 07/14/21 meclizine 25 mg tablet 25 mg PO BID-TID PRN dizziness #14 07/14/21 tabs ondansetron 4 mg disintegrating 4 mg PO TID-QID PRN nausea and 07/14/21 tablet vomiting #10 tabs bupropion HCl 300 mg 24 hr tablet, 300 mg PO QAM #90 tabs 10/25/21 extended release lithium carbonate 300 mg capsule 300 mg PO BEDTIME #30 caps 10/25/21 ciprofloxacin HCl 500 mg tablet 500 mg PO BID #14 tabs 05/30/22 (Cipro) Allergies Allergy/AdvReac Type Severity Reaction Status Date / Time cephalexin Allergy Intermediate HIVES ALL Verified 05/27/22 17:41 OVER BODY Review of Systems <Luiza Gomez MD - Last Filed: 05/11/23 03:09> Review of Systems Narrative: Otherwise negative Patient History <Luiza Gomez MD - Last Filed: 05/11/23 03:09> Medical History ADHD, predominantly inattentive type Depression (~2003) Generalized anxiety disorder with panic attacks (~1999) Obstructive sleep apnea, adult Family History Father Hypertension Mental health problem Loud snoring Insomnia Depression Brother Diabetes mellitus Mental health problem Stroke Obesity Bipolar disorder Family/Other Depression Mother Obesity Depression Anxiety Social History Smoking Status: Current every day smoker Smoking Status: Current every day smoker tobacco type: vaping alcohol intake frequency: a few times a month Substance Use Type: does not use Exam <Luiza Gomez MD - Last Filed: 05/11/23 03:09> Initial Vital Signs Initial Vital Signs: Vital Signs Temperature 98.0 F 05/09/23 19:19 Pulse Rate 97 H 05/09/23 19:19 Respiratory Rate 18 05/09/23 19:19 Blood Pressure 134/94 H 05/09/23 19:19 Pulse Oximetry 100 05/09/23 19:19 Oxygen Delivery Method Room Air 05/09/23 19:19 Const: Awake, alert, no acute distress, nontoxic appearing Cardiac: regular rate, regular rhythm RESP: unlabored, clear bilaterally, no wheezing GI: Atraumatic, soft, nontender, nondistended, no rebound, no guarding MSK: Atraumatic, full range of motion, pulses equal Skin: Warm, Dry, intact, no rashes Neuro: AO x3, CN II-XII grossly intact, moves all extremities Psych: Suicidal with a plan, not homicidal <Woody Toney DO - Last Filed: 05/10/23 14:36> Initial Vital Signs Initial Vital Signs: Vital Signs Temperature 98.0 F 05/09/23 19:19 Pulse Rate 97 H 05/09/23 19:19 Respiratory Rate 18 05/09/23 19:19 Blood Pressure 134/94 H 05/09/23 19:19 Pulse Oximetry 100 05/09/23 19:19 Oxygen Delivery Method Room Air 05/09/23 19:19 Course <uLiza Gomez MD - Last Filed: 05/11/23 03:09> Orders Ordered: ED Orders 05/09/23 19:27 Consult to [facility] [place] - Assistant Plant Control Operator Stat 05/09/23 19:46 EKG-12 Lead Stat 05/09/23 20:36 Acetaminophen Stat CBC Auto Diff [Complete Blood Count AUTO DIFF] Stat CMP [Comprehensive Metabolic Panel] Stat Ethanol (ETOH) Stat TSH [Thyroid Stimulating Hormone] Stat 05/09/23 21:00 COVID19 -Nasal RAPID Stat 05/09/23 21:31 UA Complete [Urinalysis and Microscopic] Stat Urine Drug Screen, Rapid Stat Vital Signs Vital signs: Vital Signs - 8 hr 05/10/23 06:25 Pulse Rate 78 Respiratory Rate 16 Blood Pressure 128/64 Pulse Oximetry 100 Oxygen Delivery Method Room Air <Woody Toney DO - Last Filed: 05/10/23 14:36> Orders Ordered: ED Orders 05/09/23 19:27 Consult to [facility] Assistant Plant Control Operator Stat 05/09/23 19:46 EKG-12 Lead Stat 05/09/23 20:36 Acetaminophen Stat CBC Auto Diff [Complete Blood Count AUTO DIFF] Stat CMP [Comprehensive Metabolic Panel] Stat Ethanol (ETOH) Stat TSH [Thyroid Stimulating Hormone] Stat 05/09/23 21:00 COVID19 -Nasal RAPID Stat 05/09/23 21:31 UA Complete [Urinalysis and Microscopic] Stat Urine Drug Screen, Rapid Stat Vital Signs Vital signs: Vital Signs - 8 hr 05/10/23 06:25 Pulse Rate 78 Respiratory Rate 16 Blood Pressure 128/64 Pulse Oximetry 100 Oxygen Delivery Method Room Air MDM - Psych <Luiza Gomez MD - Last Filed: 05/11/23 03:09> Lab Data 05/09/23 20:36 05/09/23 20:36 Labs: Lab Results 05/09/23 05/09/23 05/09/23 Range/Units 20:36 21:00 21:31 WBC 5.8 (4.5-11.0) X10^3/uL RBC 3.92 L (4.0-5.2) X10^6/uL Hgb 11.3 L (12.0-16.0) g/dL Hct 33.2 L (36-46) % MCV 84.5 (80-100) fL MCH 28.8 (26-34) PG MCHC 34.1 (30-36) % RDW 15.4 H (11.6-14.8) % Plt Count 352 (150-400) X10^3/uL Neut % (Auto) 61.8 (50-75) % Lymph % (Auto) 29.5 (25-40) % [place] % (Auto) 7.6 (3-14) % Eos % (Auto) 0.3 L (2-4) % Baso % (Auto) 0.8 (0-2) % Neut # (Auto) 3600 (6423-6623) /uL Lymph # (Auto) 1700 (9544-7749) /uL [place] # (Auto) 400 (0-900) /uL Eos # (Auto) 0 (0-450) /uL Baso # (Auto) 0 (0-100) /uL Sodium 136 L (137-145) mmol/L Potassium 3.1 L (3.4-5.1) mmol/L Chloride 102 (98-107) mmol/L Carbon Dioxide 25 (22-32) mmol/L BUN 9 (7-17) mg/dL Creatinine 1.11 H (0.52-1.04) mg/dL Estimated GFR > 60 (>60) mL/min BUN/Creatinine Ratio 8.1 (6-22) Glucose 85 (70-100) mg/dL Calcium 8.9 (8.4-10.2) mg/dL Total Bilirubin 0.7 (0.2-1.3) mg/dL AST 35 (14-36) IU/L ALT 20 (<35) IU/L Alkaline Phosphatase 73 (38-126) U/L Total Protein 7.3 (6.3-8.2) g/dL Albumin 4.4 (3.5-5.0) g/dL Globulin 2.9 (1.7-4.1) g/dL Albumin/Globulin Ratio 1.5 (1.0-2.8) TSH 1.65 (0.47-4.68) uIU/mL Urine Color Yellow Urine Appearance Clear Urine pH 5.5 (4.5-8.0) Ur Specific [place] <=1.005 (1.000-1.035) Urine Protein Negative (Negative) Urine Glucose (UA) Negative (Negative) g/dL Urine Ketones Trace H (NEGATIVE) Urine Occult Blood Negative (Negative) Urine Nitrate Negative (Negative) Urine Bilirubin Negative (NEGATIVE) Urine Urobilinogen 0.2 (0.2) E.U./dL Ur Leukocyte Esterase Negative (NEGATIVE) Urine RBC None seen (0-5/HPF) Urine WBC None seen (0-5/HPF) Ur Squamous Epith Cells None seen (0-5/HPF) Urine Bacteria None seen (None) Ur Culture Indicated? Cult not indicated Vol Urine Centrifuged 10ml (spun) U Opiates 300ng/mL cut Negative (Negative) Ur Oxycodone Screen Negative (Negative) Urine Methadone Screen Negative (Negative) Acetaminophen < 10 (10-30) ug/mL Ur Barbiturates Screen Negative (Negative) U Tricyclic Antidepress Negative (Negative) Ur Phencyclidine Scrn Negative (Negative) Ur Amphetamines Screen Positive H (Negative) U Methamphetamines Scrn Negative (Negative) Ur MDMA Scrn (Ecstasy) Negative (Negative) U Benzodiazepines Scrn Negative (Negative) Urine Cocaine Screen Negative (Negative) U Marijuana (THC) Screen Positive H (Negative) Urine Specific [place] Ethyl Alcohol < 10 ( - 10) mg/dL Ur Creatinine SARS-CoV-2 (PCR) Negative (Negative) 05/09/23 Range/Units 21:31 WBC (4.5-11.0) X10^3/uL RBC (4.0-5.2) X10^6/uL Hgb (12.0-16.0) g/dL Hct (36-46) % MCV (80-100) fL MCH (26-34) PG MCHC (30-36) % RDW (11.6-14.8) % Plt Count (150-400) X10^3/uL Neut % (Auto) (50-75) % Lymph % (Auto) (25-40) % [place] % (Auto) (3-14) % Eos % (Auto) (2-4) % Baso % (Auto) (0-2) % Neut # (Auto) (9030-8215) /uL Lymph # (Auto) (1376-7956) /uL [place] # (Auto) (0-900) /uL Eos # (Auto) (0-450) /uL Baso # (Auto) (0-100) /uL Sodium (137-145) mmol/L Potassium (3.4-5.1) mmol/L Chloride (98-107) mmol/L Carbon Dioxide (22-32) mmol/L BUN (7-17) mg/dL Creatinine (0.52-1.04) mg/dL Estimated GFR (>60) mL/min BUN/Creatinine Ratio (6-22) Glucose (70-100) mg/dL Calcium (8.4-10.2) mg/dL Total Bilirubin (0.2-1.3) mg/dL AST (14-36) IU/L ALT (<35) IU/L Alkaline Phosphatase (38-126) U/L Total Protein (6.3-8.2) g/dL Albumin (3.5-5.0) g/dL Globulin (1.7-4.1) g/dL Albumin/Globulin Ratio (1.0-2.8) TSH (0.47-4.68) uIU/mL Urine Color Urine Appearance Urine pH TNP (4.5-8.0) Ur Specific [place] (1.000-1.035) Urine Protein (Negative) Urine Glucose (UA) (Negative) g/dL Urine Ketones (NEGATIVE) Urine Occult Blood (Negative) Urine Nitrate (Negative) Urine Bilirubin (NEGATIVE) Urine Urobilinogen (0.2) E.U./dL Ur Leukocyte Esterase (NEGATIVE) Urine RBC (0-5/HPF) Urine WBC (0-5/HPF) Ur Squamous Epith Cells (0-5/HPF) Urine Bacteria (None) Ur Culture Indicated? Vol Urine Centrifuged U Opiates 300ng/mL cut (Negative) Ur Oxycodone Screen (Negative) Urine Methadone Screen (Negative) Acetaminophen (10-30) ug/mL Ur Barbiturates Screen (Negative) U Tricyclic Antidepress (Negative) Ur Phencyclidine Scrn (Negative) Ur Amphetamines Screen (Negative) U Methamphetamines Scrn (Negative) Ur MDMA Scrn (Ecstasy) (Negative) U Benzodiazepines Scrn (Negative) Urine Cocaine Screen (Negative) U Marijuana (THC) Screen (Negative) Urine Specific [place] TNP Ethyl Alcohol ( - 10) mg/dL Ur Creatinine TNP SARS-CoV-2 (PCR) (Negative) Point of Care Testing Test Results Negative Urine Dip Bedside Urine Glucose Negative Bedside Urine Bilirubin - Negative Bedside Urine Ketone - Negative Urine Specific [place] 1.005 Bedside Urine Occult Blood - Negative Bedside Urine pH 6.0 Bedside Urine Protein - Negative Bedside Urine Urobilinogen - Negative Bedside Urine Nitrite - Negative Bedside Urine Leukocytes - Negative Esterase MDM Narrative Medical decision making narrative: Suicidal ideation. Patient was calm, cooperative, while she voiced inattention to slit her wrist she did not actually cut herself and there are no lacerations. Alcohol or other drug use. Medically cleared, will observe for social work in the morning. Care of patient turned to Dr. Toney at 0700 Dr toney: Received turned over. Review patient's history and physical and workup up to this point. Patient is medically cleared. Has been seen by social work. After evaluation by social work plan is made for discharge home with resources. Patient does not meet criteria for CELI patient can return to the emergency department at any point for worsening symptoms <Woody Toney, DO - Last Filed: 05/10/23 14:36> Lab Data Labs: Lab Results 05/09/23 05/09/23 05/09/23 Range/Units 20:36 21:00 21:31 WBC 5.8 (4.5-11.0) X10^3/uL RBC 3.92 L (4.0-5.2) X10^6/uL Hgb 11.3 L (12.0-16.0) g/dL Hct 33.2 L (36-46) % MCV 84.5 (80-100) fL MCH 28.8 (26-34) PG MCHC 34.1 (30-36) % RDW 15.4 H (11.6-14.8) % Plt Count 352 (150-400) X10^3/uL Neut % (Auto) 61.8 (50-75) % Lymph % (Auto) 29.5 (25-40) % [place] % (Auto) 7.6 (3-14) % Eos % (Auto) 0.3 L (2-4) % Baso % (Auto) 0.8 (0-2) % Neut # (Auto) 3600 (0170-6645) /uL Lymph # (Auto) 1700 (9755-6951) /uL [place] # (Auto) 400 (0-900) /uL Eos # (Auto) 0 (0-450) /uL Baso # (Auto) 0 (0-100) /uL Sodium 136 L (137-145) mmol/L Potassium 3.1 L (3.4-5.1) mmol/L Chloride 102 (98-107) mmol/L Carbon Dioxide 25 (22-32) mmol/L BUN 9 (7-17) mg/dL Creatinine 1.11 H (0.52-1.04) mg/dL Estimated GFR > 60 (>60) mL/min BUN/Creatinine Ratio 8.1 (6-22) Glucose 85 (70-100) mg/dL Calcium 8.9 (8.4-10.2) mg/dL Total Bilirubin 0.7 (0.2-1.3) mg/dL AST 35 (14-36) IU/L ALT 20 (<35) IU/L Alkaline Phosphatase 73 (38-126) U/L Total Protein 7.3 (6.3-8.2) g/dL Albumin 4.4 (3.5-5.0) g/dL Globulin 2.9 (1.7-4.1) g/dL Albumin/Globulin Ratio 1.5 (1.0-2.8) TSH 1.65 (0.47-4.68) uIU/mL Urine Color Yellow Urine Appearance Clear Urine pH 5.5 (4.5-8.0) Ur Specific [place] <=1.005 (1.000-1.035) Urine Protein Negative (Negative) Urine Glucose (UA) Negative (Negative) g/dL Urine Ketones Trace H (NEGATIVE) Urine Occult Blood Negative (Negative) Urine Nitrate Negative (Negative) Urine Bilirubin Negative (NEGATIVE) Urine Urobilinogen 0.2 (0.2) E.U./dL Ur Leukocyte Esterase Negative (NEGATIVE) Urine RBC None seen (0-5/HPF) Urine WBC None seen (0-5/HPF) Ur Squamous Epith Cells None seen (0-5/HPF) Urine Bacteria None seen (None) Ur Culture Indicated? Cult not indicated Vol Urine Centrifuged 10ml (spun) U Opiates 300ng/mL cut Negative (Negative) Ur Oxycodone Screen Negative (Negative) Urine Methadone Screen Negative (Negative) Acetaminophen < 10 (10-30) ug/mL Ur Barbiturates Screen Negative (Negative) U Tricyclic Antidepress Negative (Negative) Ur Phencyclidine Scrn Negative (Negative) Ur Amphetamines Screen Positive H (Negative) U Methamphetamines Scrn Negative (Negative) Ur MDMA Scrn (Ecstasy) Negative (Negative) U Benzodiazepines Scrn Negative (Negative) Urine Cocaine Screen Negative (Negative) U Marijuana (THC) Screen Positive H (Negative) Urine Specific [place] Ethyl Alcohol < 10 ( - 10) mg/dL Ur Creatinine SARS-CoV-2 (PCR) Negative (Negative) 05/09/23 Range/Units 21:31 WBC (4.5-11.0) X10^3/uL RBC (4.0-5.2) X10^6/uL Hgb (12.0-16.0) g/dL Hct (36-46) % MCV (80-100) fL MCH (26-34) PG MCHC (30-36) % RDW (11.6-14.8) % Plt Count (150-400) X10^3/uL Neut % (Auto) (50-75) % Lymph % (Auto) (25-40) % [place] % (Auto) (3-14) % Eos % (Auto) (2-4) % Baso % (Auto) (0-2) % Neut # (Auto) (1837-9554) /uL Lymph # (Auto) (0956-3479) /uL [place] # (Auto) (0-900) /uL Eos # (Auto) (0-450) /uL Baso # (Auto) (0-100) /uL Sodium (137-145) mmol/L Potassium (3.4-5.1) mmol/L Chloride (98-107) mmol/L Carbon Dioxide (22-32) mmol/L BUN (7-17) mg/dL Creatinine (0.52-1.04) mg/dL Estimated GFR (>60) mL/min BUN/Creatinine Ratio (6-22) Glucose (70-100) mg/dL Calcium (8.4-10.2) mg/dL Total Bilirubin (0.2-1.3) mg/dL AST (14-36) IU/L ALT (<35) IU/L Alkaline Phosphatase (38-126) U/L Total Protein (6.3-8.2) g/dL Albumin (3.5-5.0) g/dL Globulin (1.7-4.1) g/dL Albumin/Globulin Ratio (1.0-2.8) TSH (0.47-4.68) uIU/mL Urine Color Urine Appearance Urine pH TNP (4.5-8.0) Ur Specific [place] (1.000-1.035) Urine Protein (Negative) Urine Glucose (UA) (Negative) g/dL Urine Ketones (NEGATIVE) Urine Occult Blood (Negative) Urine Nitrate (Negative) Urine Bilirubin (NEGATIVE) Urine Urobilinogen (0.2) E.U./dL Ur Leukocyte Esterase (NEGATIVE) Urine RBC (0-5/HPF) Urine WBC (0-5/HPF) Ur Squamous Epith Cells (0-5/HPF) Urine Bacteria (None) Ur Culture Indicated? Vol Urine Centrifuged U Opiates 300ng/mL cut (Negative) Ur Oxycodone Screen (Negative) Urine Methadone Screen (Negative) Acetaminophen (10-30) ug/mL Ur Barbiturates Screen (Negative) U Tricyclic Antidepress (Negative) Ur Phencyclidine Scrn (Negative) Ur Amphetamines Screen (Negative) U Methamphetamines Scrn (Negative) Ur MDMA Scrn (Ecstasy) (Negative) U Benzodiazepines Scrn (Negative) Urine Cocaine Screen (Negative) U Marijuana (THC) Screen (Negative) Urine Specific [place] TNP Ethyl Alcohol ( - 10) mg/dL Ur Creatinine TNP SARS-CoV-2 (PCR) (Negative) Point of Care Testing Test Results Negative Urine Dip Bedside Urine Glucose Negative Bedside Urine Bilirubin - Negative Bedside Urine Ketone - Negative Urine Specific [place] 1.005 Bedside Urine Occult Blood - Negative Bedside Urine pH 6.0 Bedside Urine Protein - Negative Bedside Urine Urobilinogen - Negative Bedside Urine Nitrite - Negative Bedside Urine Leukocytes - Negative Esterase MDM Narrative Medical decision making narrative: Suicidal ideation. Patient was calm, cooperative, while she voiced inattention to slit her wrist she did not actually cut herself and there are no lacerations. Alcohol or other drug use. Medically cleared, will observe for social work in the morning. Dr toney: Received turned over. Review patient's history and physical and workup up to this point. Patient is medically cleared. Has been seen by social work. After evaluation by social work plan is made for discharge home with resources. Patient does not meet criteria for CELI patient can return to the emergency department at any point for worsening symptoms Discharge Plan Departure Patient Disposition: Home Clinical Impression: Depression, Suicidal ideation Instructions: Depression Activity Restrictions/Additional Instructions: Recommend that you continue to take all of your medications as directed. It is important that you follow-up with your primary care doctor. You can use the resources that were given to you by social sciences lecturer to help with establishing a mental health provider. Return to the emergency department at any point for new or worsening symptoms. Prescriptions: No Action bupropion HCl 300 mg tablet extended release 24 hr 300 mg PO QAM Qty: 90 3RF lithium carbonate 300 mg capsule 300 mg PO BEDTIME Qty: 30 3RF norgestimate-ethinyl estradiol [[place]] 0.25-35 mg-mcg tablet 1 tab PO DAILY Qty: 28 11RF metronidazole 500 mg tablet See Rx Instructions .ROUTE .COMPLEX Qty: 10 0RF Dose Instruction: take 1 tablet by mouth twice a day Rx Instructions: take 1 tablet by mouth twice a day meclizine 25 mg tablet 25 mg PO BID-TID PRN (Reason: dizziness) Qty: 14 0RF ketorolac 10 mg tablet 10 mg PO Q6H PRN (Reason: pain) Qty: 14 0RF ondansetron 4 mg tablet,disintegrating 4 mg PO TID-QID PRN (Reason: nausea and vomiting) Qty: 10 0RF ciprofloxacin HCl [Cipro] 500 mg tablet 500 mg PO BID Qty: 14 0RF tramadol [Ultram] 50 mg tablet 50 mg PO Q6H PRN (Reason: pain) Qty: 10 0RF Referrals: Miscellaneous,Doctor, MD [Primary Care Provider] - Stand Alone Forms: Patient Portal/API
[2023-05-09 20:43] LABS: Add Manual Diff / Slide Review NO; Basophils Absolute Auto 0 /uL (0-100); Basophils Percent Auto 0.8 % (0-2); Eosinophils Absolute Auto 0 /uL (0-450); Eosinophils Percent Auto 0.3 % (2-4); Hematocrit 33.2 % (36-46); Hemoglobin 11.3 g/dL (12.0-16.0); Lymphocytes Absolute Auto 1700 /uL (1100-4500); Lymphocytes Percent Auto 29.5 % (25-40); Mean Corpuscular HGB Conc 34.1 % (30-36); Mean Corpuscular Hemoglobin 28.8 PG (26-34); Mean Corpuscular Volume 84.5 fL (80-100); Monocytes Absolute Auto 400 /uL (0-900); Monocytes Percent Auto 7.6 % (3-14); Neutrophils Absolute Auto 3600 /uL (1500-7000); Neutrophils Percent Auto 61.8 % (50-75); Platelet Count 352 X10^3/uL (150-400); Red Blood Cell Count 3.92 X10^6/uL (4.0-5.2); Red Cell Distribution Width 15.4 % (11.6-14.8); White Blood Cell Count 5.8 X10^3/uL (4.5-11.0)
[2023-05-09 20:55] LABS: Acetaminophen < 10 ug/mL (10-30); Alanine Aminotransferase 20 IU/L (<35); Albumin 4.4 g/dL (3.5-5.0); Albumin Globulin Ratio 1.5 (1.0-2.8); Alkaline Phosphatase 73 U/L (38-126); Aspartate Aminotransferase 35 IU/L (14-36); BUN Creatinine Ratio 8.1 (6-22); Bilirubin Total 0.7 mg/dL (0.2-1.3); Blood Urea Nitrogen 9 mg/dL (7-17); Calcium 8.9 mg/dL (8.4-10.2); Carbon Dioxide 25 mmol/L (22-32); Chloride 102 mmol/L (98-107); Estimated Glomerular Filt Rate > 60 mL/min (>60); Ethanol (ETOH) < 10 mg/dL; Globulin 2.9 g/dL (1.7-4.1); Glucose 85 mg/dL (70-100); HEMOLYSIS < 15 (0-50); Potassium 3.1 mmol/L (3.4-5.1); Sodium 136 mmol/L (137-145); Total Protein 7.3 g/dL (6.3-8.2)
[2023-05-09 21:26] LABS: COVID19 -Nasal RAPID Negative (Negative)
[2023-05-09 21:43] LABS: Appearance Urine UA CLEAR; Bilirubin Urine UA NEGATIVE (NEGATIVE); Color Urine UA YELLOW; Glucose Urine UA NEGATIVE (Negative); Ketones Urine UA TRACE (NEGATIVE); Leukocyte Esterase Urine UA NEGATIVE (NEGATIVE); Nitrite Urine UA NEGATIVE (Negative); Occult Blood Urine UA NEGATIVE (Negative); Protein Urine UA NEGATIVE (Negative); Specific Gravity Urine UA <=1.005 (1.000-1.035); Urobilinogen Urine UA 0.2 E.U./dL (0.2)
[2023-05-09 21:44] LABS: pH Urine UA 5.5 (4.5-8.0)
[2023-05-09 21:47] LABS: Thyroid Stimulating Hormone 1.65 uIU/mL (0.47-4.68)
[2023-05-09 21:55] LABS: Bacteria Urine None Seen; Culture Indicated Urine Cult Not Indicated; RBC Urine None Seen (0-5/HPF); Squamous Epithelial Cell Urine None Seen (0-5/HPF); Urine Volume 10mL (spun); WBC Urine None Seen (0-5/HPF)
[2023-05-09 22:01] LABS: Urine Tetrahydrocannabinol Positive (Negative)
[2023-05-09 22:02] LABS: UR Morphine/Opiate cutoff 300 Negative (Negative); Urine Amphetamines Positive (Negative); Urine Barbiturates Negative (Negative); Urine Benzodiazepines Negative (Negative); Urine Cocaine Negative (Negative); Urine MDMA Negative (Negative); Urine Methadone Negative (Negative); Urine Methamphetamines Negative (Negative); Urine Oxycodone Negative (Negative); Urine Phencyclidine Negative (Negative); Urine Tricyclic Antidepressant Negative (Negative)
[2023-05-10 06:25] VITALS: BP 128/64; PULSE 78; RESP 16; O2SAT 100
--- NOTE | 2023-05-10 07:40 | PC.NURSE ---
patient informed me she has morning medications that she needs to take. going through records and asking patient, she is unsure of dosing of certain medications but knows she takes lamotrigine possible twice per day, duloxetine twice per day, adderall in the morning and maybe hydroxyzine. she states she has a pill box in her purse with the ones she is supposed to take. spoke with MD about plan to give her meds when she is unsure of dosing, given okay to give patient her morning meds from home supply with breakfast.
--- NOTE | 2023-05-10 08:08 | PC.NURSE ---
patient given breakfast and her morning pills. patient took 4 different pills from her Sat AM home box.
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
[2023-05-10 14:44] VITALS: BP 109/58; PULSE 78; RESP 17; O2SAT 99
--- NOTE | 2023-05-10 14:52 | CM.SWNOTE ---
ED CPA TAX Note CPA TAX met w/ pt to discuss plan. Pt states she would be interested in intensive outpatient services. CPA TAX called [facility] to see about a referral to iop. CPA TAX was told pt can follow up to set services up but that no one is there for iop on the weekends. CPA TAX provided pt w/ resources for crisis contacts and mental health services that accept her insurance. PABLITO Ray, [facility]
== END 2023-05-10 15:15 | disposition home or self-care (01) ==
PROVIDERS: Emergency Medicine; Emergency Provider Emergency Medicine
DX: F32.A Depression, unspecified (principal); R45.851 Suicidal ideations
CPT/HCPCS: 36415; 80053; 80305; 80320; 80329; 81001; 81003; 81025; 84443; 85025; 87635; 93005; 93010; 99283; 99284; G0480